=== PATIENT | male | born 1940 | race Caucasian/White ===

== ENCOUNTER 2018-10-28 12:34 | Observation (INO) | payer MEDICARE ==
[2018-10-28 13:03] LABS: ABS Eosinophils 0.2 10^3/ul (0-0.6); ABS Lymphocytes 0.8 10^3/ul (1.0-4.8); ABS Monocytes 0.4 10^3/ul (0-0.8); ABS Neutrophils 3.7 10^3/ul (1.5-7.7); Eosinophil % 3.1 %; Hematocrit 42 % (42-52); Hemoglobin 13.8 g/dL (14.0-18.0); Lymphocyte % 14.9 %; Mean Corpuscular HGB Conc 33 g/dL (31-36); Mean Corpuscular Hemoglobin 30 pg (27-31); Mean Corpuscular Volume 91 fL (80-94); Mean Platelet Volume 8.6 fL (7.4-10.4); Nucleated Red Blood Cells % 0.1; Platelet Count 183 10^3/uL (150-450); Red Blood Count 4.58 10^6 /uL (4.18-5.48); Red Cell Distribution Width 16 % (10-15)
[2018-10-28 13:11] LABS: INR 1.07 (0.82-1.09)
[2018-10-28 13:26] LABS: Albumin 3.7 g/dL (3.2-5.2); Albumin/Globulin Ratio 1.2 (1-3); BUN/Creatinine Ratio 26.9 (8-20); EGFR African American 71.9 (>60); EGFR Non-African American 59.4 (>60); Potassium 4.3 mmol/L (3.5-5.0); Total Bilirubin 0.7 mg/dL (0.2-1.0); Total Protein 6.7 g/dL (6.4-8.9)
[2018-10-28 13:29] LABS: Troponin I 0.02 ng/mL (<0.04)
[2018-10-28] MEDS ORDERED: NS 0.9% 1000 ML** 1,000 ML IV ONE (14:12)
--- NOTE | 2018-10-28 14:40 | ED ---
Syncope/Near Syncope - HPI Summary HPI Summary: This patient is a 78 year old M presenting to [facility] accompanied by his friend with a chief complaint of syncope since 1200 today. The patient rates the pain 0 /10 in severity. Symptoms aggravated by nothing. Symptoms alleviated by nothing. Patient was having breakfast with his friend when he said he was not feeling well. Per friend the patient became pale, slumped over, and started to snore. Next thing the patient remembers his friend is putting him into his car. He states that he believes he had a syncopal episode due to his hyponatremia, but has not had any previously. Patient reports lightheadedness, dizziness, being disoriented, and clamminess. Patient denies CP, SOB, pain or swelling in lower extremities, fever, chills, erythema of eyes, sore throat, cough, abdominal pain, N/V, dysuria, hematuria, swelling myalgia, and rash. He does not use drugs or consume alcohol, but reports a strong appetite. His field naturalist is Dr. Kelly in [place], [place]. He had 5 bypass surgeries done over the past several years and double pneumonia in July 2018. - History Of Current Complaint Chief Complaint: EDSyncope Time Seen by Provider: 10/28/18 12:51 Hx Obtained From: Patient, Other: - friend Onset/Duration: Sudden Onset, Lasting Hours - 2, Resolved Timing: Hours - 2 Context: Witnessed - friend was present Activity At Onset: Other - eating and talking Aggravating Factor(s): Nothing Alleviating Factor(s): Nothing Associated Signs And Symptoms: Diaphoresis - clamminess, Dizzy, Lightheadedness , Other - disoriented - Allergies/Home Medications Allergies/Adverse Reactions: Allergies Allergy/AdvReac Type Severity Reaction Status Date / Time No Known Allergies Allergy Verified 10/28/18 12:42 Home Medications: Home Medications Aspirin 1 tab PO DAILY 10/28/18 [History Confirmed 10/28/18] Atorvastatin* 80 mg PO DAILY 10/28/18 [History Confirmed 10/28/18] Carvedilol TAB* [Coreg TAB*] 1 tab PO BID 10/28/18 [History Confirmed 10/28/18] Fluticasone/Vilanterol MDI(NF) [Breo Ellipta MDI 100/25(NF)] 1 inh INH DAILY [History Confirmed 10/28/18] Losartan Potassium [Cozaar] 1 tab PO DAILY 10/28/18 [History Confirmed 10/28/18] Pantoprazole TAB * [Protonix TAB*] 1 tab PO DAILY 10/28/18 [History Confirmed ] PMH/Surg Hx/FS Hx/Imm Hx Previously Healthy: No Cardiovascular History: Reports: Hx Coronary Artery Disease Respiratory History: Reports: Hx Pneumonia - double pneumonia in July 2018 Sensory History: Denies: Hx Vision Problem, Hx Deafness Opthamlomology History: Denies: Hx Cataracts EENT History: Denies: Hx Deafness - Surgical History Surgical History: Yes Surgery Procedure, Year, and Place: 5 CABG procedures done in the past several years Infectious Disease History: No Infectious Disease History: Denies: Traveled Outside the [place] in Last 30 Days - Family History Known Family History: Positive: Cardiac Disease - several family members Negative: Diabetes - Social History Alcohol Use: None Hx Substance Use: No Substance Use Type: Reports: None Hx Tobacco Use: No Smoking Status (MU): Former Smoker Do You Chew or Dip Tobacco: No Have You Chewed or Dipped Tobacco in the LAST YEAR: No Have You Smoked in the Last Year: No Review of Systems Positive: Skin Diaphoresis - clamminess. Negative: Fever, Chills Negative: Erythema Negative: Sore Throat Negative: Chest Pain Negative: Shortness Of Breath, Cough Negative: Abdominal Pain, Vomiting, Nausea Negative: dysuria, hematuria Musculoskeletal: Other - negative - lower extremity pain and swelling Negative: Myalgia, Edema Negative: Rash Neurological: Other - lightheaded, dizziness, disoriented Positive: Syncope All Other Systems Reviewed And Are Negative: Yes Physical Exam - Summary Physical Exam Summary: Constitutional: Well-developed, Well-nourished, Alert. (-) Distressed Skin: Warm, Dry HENT: Normocephalic; Atraumatic Eyes: Conjunctiva normal Neck: Musculoskeletal ROM normal neck. (-) JVD, (-) Stridor, (-) Tracheal deviation Cardio: Rhythm regular, rate normal, Heart sounds normal; Intact distal pulses; The pedal pulses are 2+ and symmetric. Radial pulses are 2+ and symmetric. (-) Murmur Pulmonary/Chest wall: Effort normal. (-) Respiratory distress, (-) Wheezes, (-) Rales Abd: Soft, (-) tenderness, (-) Distension, (-) Guarding, (-) Rebound Musculoskeletal: (-) Edema Lymph: (-) Cervical adenopathy Neuro: Alert, Oriented x3 Psych: Mood and affect Normal Triage Information Reviewed: Yes Vital Signs On Initial Exam: Initial Vitals Temp Pulse Resp BP Pulse Ox 96.7 F 72 18 165/94 97 10/28/18 12:36 10/28/18 12:36 10/28/18 12:36 10/28/18 12:36 10/28/18 12:36 Vital Signs Reviewed: Yes Diagnostics - Vital Signs Vital Signs Temp Pulse Resp BP Pulse Ox 10/28/18 13:37 58 16 143/74 98 10/28/18 13:06 54 21 177/87 97 10/28/18 12:36 96.7 F 72 18 165/94 97 - Laboratory Lab Results: Lab Results 10/28/18 10/28/18 10/28/18 Range/Units 12:51 12:51 12:51 WBC 5.0 (3.5-10.8) 10^3/uL RBC 4.58 (4.18-5.48) 10^6 /uL Hgb 13.8 L (14.0-18.0) g/dL Hct 42 (42-52) % MCV 91 (80-94) fL MCH 30 (27-31) pg MCHC 33 (31-36) g/dL RDW 16 H (10-15) % Plt Count 183 (150-450) 10^3/uL MPV 8.6 (7.4-10.4) fL Neut % (Auto) 72.7 % Lymph % (Auto) 14.9 % [place] % (Auto) 8.9 % Eos % (Auto) 3.1 % Baso % (Auto) 0.4 % Absolute Neuts (auto) 3.7 (1.5-7.7) 10^3/ul Absolute Lymphs (auto) 0.8 L (1.0-4.8) 10^3/ul Absolute Monos (auto) 0.4 (0-0.8) 10^3/ul Absolute Eos (auto) 0.2 (0-0.6) 10^3/ul Absolute Basos (auto) 0.0 (0-0.2) 10^3/ul Absolute Nucleated RBC 0.0 10^3/ul Nucleated RBC % 0.1 INR (Anticoag Therapy) 1.07 (0.82-1.09) Sodium 140 (135-145) mmol/L Potassium 4.3 (3.5-5.0) mmol/L Chloride 108 (101-111) mmol/L Carbon Dioxide 27 (22-32) mmol/L Anion Gap 5 (2-11) mmol/L BUN 32 H (6-24) mg/dL Creatinine 1.19 H (0.67-1.17) mg/dL Est GFR ( Amer) 71.9 (>60) Est GFR (Non-Af Amer) 59.4 (>60) BUN/Creatinine Ratio 26.9 H (8-20) Glucose 159 H (70-100) mg/dL Calcium 9.0 (8.6-10.3) mg/dL Total Bilirubin 0.70 (0.2-1.0) mg/dL AST 20 (13-39) U/L ALT 20 (7-52) U/L Alkaline Phosphatase 68 (34-104) U/L Troponin I 0.02 (<0.04) ng/mL Total Protein 6.7 (6.4-8.9) g/dL Albumin 3.7 (3.2-5.2) g/dL Globulin 3.0 (2-4) g/dL Albumin/Globulin Ratio 1.2 (1-3) Result Diagrams: 10/28/18 12:51 10/28/18 12:51 Lab Statement: Any lab studies that have been ordered have been reviewed, and results considered in the medical decision making process. - Radiology CXR Radiology Interpretation Completed By: Radiologist Summary of Radiographic Findings: IMPRESSION: Stigmata of obstructive lung disease. No acute pulmonary or cardiac process evident. These findings were reviewed by Dr. Hartmann. - CT CTA Chest CT Interpretation Completed By: Radiologist Summary of CT Findings: 1. No pulmonary arterial filling defect to suggest pulmonary embolism. 2. Emphysema. 3. Atherosclerosis. These findings were reviewed by Dr. Hartmann. - EKG 1246 Cardiac Rate: Bradycardia - 53 BPM EKG Rhythm: Sinus Bradycardia EKG Comparison: No Significant Change - unchanged from EKG taken on September 13, 2018 Summary of EKG Findings: 53 BPM, sinus bradycardia, no STEMI, T wave inversion, ST depression V4-V6, unchanged from EKG taken on September 13, 2018 Re-Evaluation - Re-Evaluation First Eval Re-Evaluation Time: 16:00 Comment: I discussed results and admission with the patient. Course/Dx Course Of Treatment: This patient is a 78 year old M presenting to [facility] accompanied by his friend with a chief complaint of syncope since a couple of hours ago. The patient rates the pain 0/10 in severity. Symptoms aggravated by nothing. Symptoms alleviated by nothing. Patient was having breakfast with his friend when he said he was not feeling well. Per friend the patient became pale , slumped over, and started to snore. Next thing the patient remembers his friend is putting him into his car. He states that he believes he had a syncopal episode due to his hyponatremia, but has not had any previously. Patient reports lightheadedness, dizziness, being disoriented, and clamminess. Patient denies CP, SOB, pain or swelling in lower extremities, fever, chills, erythema of eyes, sore throat, cough, abdominal pain, N/V, dysuria, hematuria, myalgia, edema, and rash. He does not use drugs or consume alcohol, but reports a strong appetite. His field naturalist is Dr. Kelly in [place], [place]. He had 5 bypass surgeries done over the past several years and double pneumonia in July. Physical Exam findings are normal. CTA Chest Impression: 1. No pulmonary arterial filling defect to suggest pulmonary embolism. 2. Emphysema. 3. Atherosclerosis. CXR Impression: Stigmata of obstructive lung disease. No acute pulmonary or cardiac process evident. EKG at 1246: 53 BPM, sinus bradycardia, no STEMI, T wave inversion, ST depression V4-V6, unchanged from EKG taken on September 13, 2018. Previous EKG obtained from Dr. Sherwin Kelly in [place], [place], field naturalist. Lab results show Hgb 13.8, RDW 16, absolute lymphs (auto) 0.8, BUN 32, creatinine 1.19, BUN/creatinine ratio 26.9, glucose 159. During the ED Course, the patient was given Iodixanol and IV fluids. He is diagnosed with syncope. Patient was admitted to [facility] by Dr. Lynch. Patient is agreeable. - Diagnoses Provider Diagnoses: Syncope - Physician Notifications Discussed Care of Patient With: Karen Lynch - hospitalist Time Discussed With Above Provider: 16:10 Instructed by Provider To: Other - I discussed the patient's case with Dr. Lnych , hospitalist. She agrees to admit patient. Discharge - Sign-Out/Discharge Documenting (check all that apply): Patient Departure - admit Patient Received Moderate/Deep Sedation with Procedure: No - Discharge Plan Condition: Stable Disposition: ADMITTED TO [facility] - Billing Disposition and Condition Condition: STABLE Disposition: Admitted to [facility] - Attestation Statements Document Initiated by Scribe: Yes Documenting Scribe: Kendall Brar Provider For Whom Scribe is Documenting (Include Credential): Dr. Isaac Hartmann MD Scribe Attestation: IKendall, scribed for Dr. Isaac Hartmann MD on 10/28/18 at 2040. Status of Scribe Document: Ready
[2018-10-28] MEDS ORDERED: Iodixanol* (CONTRAST) 320 MG/ML 100 ML SDV IV ONE (15:04)
[2018-10-28] MEDS ORDERED: Al Hydrox/Mg Hydrox/Simet LIQ* 30 ML UDC PO PRN (16:28)
[2018-10-28] MEDS ORDERED: NS 0.9% 1000 ML** 1,000 ML IV SCH (16:30)
[2018-10-28] MEDS ORDERED: Atorvastatin* 80 MG TAB PO SCH (17:00)
--- NOTE | 2018-10-28 18:46 | HP ---
HISTORY AND PHYSICAL: DATE OF ADMISSION: 10/28/18 PRIMARY CARE PROVIDER: None locally. CHIEF COMPLAINT: Syncope. HISTORY OF PRESENT ILLNESS: Demar Cuevas is a 78-year-old male with history of coronary artery disease who is visiting here from [place]. The patient stated that he has been in [facility] for the past 3 to 4 days and he is staying with his friend. He has been traveling for the past 2 weeks and he lives in [place] alone. He said he has been driving around the [facility]. He stated that his appetite has been good, but he may have been dehydrated and not keeping up with his meals. Today in the morning, he woke up at 9:00 a.m. and he ate lunch around noon with his friend. He came in to the ED at around 12:36 after he was brought by his friend. After they had a sandwich at [facility], the patient stated that he felt poorly and very weak. Consequently, he appeared to be slumped on his chair and had snoring for a second or 2. When his friend woke him up, the patient woke up and stated "no, I am okay, I am okay." At that point, the patient's friend brought him to the car and to come to the emergency department. There was no evidence of incontinence. No evidence of chest pain or shortness of breath. The patient complained of nothing. He appeared he was not confused and he regained consciousness quickly upon awakening. The snoring episode lasted a few seconds as per his male friend. He is going to be observed with diagnosis of syncope. PAST MEDICAL HISTORY: 1. History of 5-vessel CABG in 2014. 2. History of bilateral pneumonia in July 2018. 3. 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 4. Hypertension. 5. Dyslipidemia. 6. History of right ankle ORIF. 7. COPD, not on oxygen. MEDICATIONS: 1. Losartan 50 mg daily. 2. Aspirin 325 mg daily. 3. Lipitor 80 mg daily. 4. Protonix 40 mg daily. 5. Coreg 6.25 mg b.i.d. 6. Breo Ellipta 100/25 one inhalation daily. ALLERGIES: No known drug allergies. FAMILY HISTORY: Reviewed and noncontributory. SOCIAL HISTORY: The patient stated that he smoked a lot of cigarettes, but he quit smoking 25 years ago. He denies any drug use apart from occasional marijuana. He drinks 10 to 12 beers in a year. He lives alone and his surrogate decision maker is his friend, Rafy Richmond, from [place], [place], phone number is [phone]. REVIEW OF SYSTEMS: Please see history of present illness. In addition to the above mentioned, the patient stated that not as good as he used to be after his bilateral pneumonia in July of this year. He still has some shortness of breath on exertion. All the remaining 12 systems were reviewed with the patient and were otherwise negative. PHYSICAL EXAMINATION GENERAL: The patient is a pleasant 78-year-old male, who is in no acute distress. Alert, awake, and oriented x3. VITAL SIGNS: Blood pressure 162/79, heart rate of 55 and regular, respiratory rate 18, oxygen saturation 99% on room air, temperature of 96.7. HEENT: Head: Atraumatic, normocephalic. Eyes: Pupils are equal, reactive to light and accommodation. Oropharynx clear. Mucosa moist. NECK: Supple. No JVD, no bruits bilaterally. RESPIRATORY: Distant breath sounds bilaterally. No wheezes. CARDIOVASCULAR: Regular rate and rhythm. No murmur. ABDOMEN: Soft, nontender. Bowel sounds present in all 4 quadrants. EXTREMITIES: There is no edema. Pulses are +2 bilaterally. There is no clubbing or cyanosis. NEUROLOGIC: On neuro evaluation, speech is clear. Cranial nerves II through XII grossly intact. Motor strength is 5/5 bilaterally. LABORATORY DATA/DIAGNOSTIC STUDIES: White blood cell count 5.0, hemoglobin 13.8 , hematocrit 42, and platelets of 183,000. Sodium 140, potassium 4.3, chloride 108, carbon dioxide 27, BUN 32, creatinine 1.19. Liver function tests unremarkable. Troponin of 0.[address] angiogram of the chest was obtained. Impression: "No pulmonary arterial filling defects to suggest pulmonary embolism. Emphysema. 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 ASSESSMENT AND PLAN: 1. Syncope. At this point, it could be a vagal episode after the patient had a large meal. Nevertheless, the patient is going to be observed on telemetry monitored bed. We will continue neuro checks every 4 hours also. The patient is in sinus bradycardia. He has a history of cardiac disease and cardiomyopathy with, at this point unknown EF. Obtain a transthoracic echocardiogram to evaluate it further. 2. In regards of his hypertension, his losartan and Coreg are going to be continued. 3. For the patient's chronic obstructive pulmonary disease, does not appear to be in exacerbation and Breo Ellipta is going to be continued. 4. For DVT prophylaxis, the patient is going to be placed on heparin subcutaneously. TIME SPENT: Approximately 62 minutes were spent on admission of this patient, more than half of that time was spent [id number] with the patient during the interview and physical exam. [id number]/[facility] #: [id number] LEX
[2018-10-28] MEDS: Carvedilol TAB* 6.25 MG PO SCH (21:52)
[2018-10-28] MEDS: Docusate CAP* 100 MG PO SCH (21:52)
[2018-10-28] MEDS: Heparin VIAL(*) 5000 UNITS/ML VIAL (FIVE THOUSAND) SUBCUT SCH (21:56)
[2018-10-28] MEDS ORDERED: Melatonin 3 MG TAB PO PRN (23:54)
[2018-10-29] MEDS ORDERED: diPHENhydraMINE PO* 25 MG PO ONE (01:10)
[2018-10-29] MEDS: Heparin VIAL(*) 5000 UNITS/ML VIAL (FIVE THOUSAND) SUBCUT SCH (06:22)
[2018-10-29 07:04] LABS: ABS Eosinophils 0.1 10^3/ul (0-0.6); ABS Lymphocytes 0.8 10^3/ul (1.0-4.8); ABS Monocytes 0.4 10^3/ul (0-0.8); ABS Neutrophils 3.4 10^3/ul (1.5-7.7); Eosinophil % 2.3 %; Hematocrit 36 % (42-52); Hemoglobin 12.4 g/dL (14.0-18.0); Lymphocyte % 16.2 %; Mean Corpuscular HGB Conc 34 g/dL (31-36); Mean Corpuscular Hemoglobin 31 pg (27-31); Mean Corpuscular Volume 89 fL (80-94); Mean Platelet Volume 8.6 fL (7.4-10.4); Platelet Count 158 10^3/uL (150-450); Red Blood Count 4.08 10^6 /uL (4.18-5.48); Red Cell Distribution Width 16 % (10-15); White Blood Count 4.7 10^3/uL (3.5-10.8)
[2018-10-29 07:27] LABS: BUN/Creatinine Ratio 31.7 (8-20); Calcium 8.3 mg/dL (8.6-10.3); EGFR African American 86.9 (>60); EGFR Non-African American 71.8 (>60); Potassium 3.7 mmol/L (3.5-5.0)
[2018-10-29] MEDS ORDERED: Pantoprazole TAB * 40 MG TAB PO SCH (09:00)
[2018-10-29] MEDS ORDERED: Aspirin TAB* 325 MG PO SCH (09:00)
[2018-10-29] MEDS ORDERED: NFT: Fluticasone/Vilanterol MDI(NF) 100/25 MDI INH SCH (09:00)
[2018-10-29] MEDS ORDERED: Losartan TAB* 25 MG PO SCH (09:00)
[2018-10-29] MEDS: Docusate CAP* 100 MG PO SCH (10:46)
[2018-10-29] MEDS: Carvedilol TAB* 6.25 MG PO SCH (10:46)
--- NOTE | 2018-10-29 12:24 | ECHO ---
*[facility]* [place] [address] Fax #: [phone] Transthoracic Echocardiogram Patient: Mason, Height: 71 in / Demar 180.3 cm : 1940 Weight: 149.7 lb / Study Date: 10/29/2018 68 kg Age: 78 BP: 156 / 88 Gender: M BMI/BSA: 20.9 kg/m^2 HR: 57 bpm / 1.87 m^2 *Bread Dough Mixer: * Allison Herr [facility] *Referring Physician: * Karen Lynch *Reading Physician: Skip Briggs MD History: COPD. Syncope. Coronary artery disease. Risk factors: Former tobacco use. Labs, prior tests, procedures, and surgery: Coronary artery bypass grafting. Conclusions Summary: 1. Left ventricle: The cavity size is normal. Wall thickness is normal. Systolic function is normal. The estimated ejection fraction is 55-60%. 2. Regional wall motion abnormality: Mild hypokinesis of the apical septal myocardium. 3. Right ventricle: The cavity size is normal. Systolic function is normal. 4. Ventricular septum: Ventricular septal wall motion has a postoperative appearance. 5. Left atrium: The atrium is mildly to moderately dilated. 6. Pulmonary arteries: Systolic pressure is mildly increased. 7. No significant valvular abnormalities noted. Recommendations: None prior for comparison at time of interpretation Study data: Transthoracic echocardiogram. Procedure: Transthoracic echocardiography was performed. Complete 2D, spectral Doppler, and color flow Doppler. Patient status: Inpatient. Patient room number: 445-1. Rhythm: Bradycardia. Findings Left ventricle: The cavity size is normal. Wall thickness is normal. Systolic function is normal. The estimated ejection fraction is 55-60%. Regional wall motion abnormalities: Mild hypokinesis of the apical septal myocardium. Features are consistent with a pseudonormal left ventricular filling pattern, with concomitant abnormal relaxation and increased filling pressure (grade 2 diastolic dysfunction). Right ventricle: Well visualized. The cavity size is normal. Systolic function is normal. Ventricular septum: Ventricular septal wall motion has a postoperative appearance. Left atrium: Well visualized. The atrium is mildly to moderately dilated. Right atrium: Well visualized. The atrium is normal in size. Atrial septum: Well visualized. Mitral valve: Well visualized. The leaflets are mildly thickened. No echocardiographic evidence for prolapse. There is no evidence of stenosis. There is mild regurgitation. Aortic valve: Well visualized. The valve is trileaflet. The leaflets are mildly thickened. There is no evidence of stenosis. There is mild regurgitation. Tricuspid valve: Well visualized. The leaflets are normal thickness. There is no evidence of stenosis. There is mild regurgitation. Pulmonic valve: Well visualized. The leaflets are normal thickness. There is no evidence of stenosis. There is trivial regurgitation. Aorta: The aorta is well visualized and normal size. Aortic arch: The aortic arch is appears normal. The aortic root is not dilated. Pericardium: There is no pericardial effusion. No evidence of pleural fluid accumulation. Pulmonary arteries: Not well visualized. Systolic pressure is mildly increased. Systemic veins: Well visualized. Inferior vena cava: The vessel is normal in size. Pulmonary veins: Visualization of the pulmonary venous anatomy is incomplete, but a significant abnormality is unlikely. Measurements Left ventricle Value Ref Aortic valve continued Value Ref AFTAB, LAX 4.3 cm 4.2 - Peak v, S 1.08 m/sec ----- 5.8 VTI, S 27.8 cm ----- ESD, LAX 2.9 cm 2.5 - Mean grad, S 3.0 mm Hg ----- 4.0 Peak grad, S 5.0 mm Hg ----- FS, LAX 32 % 25 - 43 LVOT/AV, VTI ratio 0.67 ----- PW, ED, LAX 0.8 cm 0.6 - AR peak v 2.44 m/sec ----- 1.0 AR PHT 635 ms ----- FS 32 % 25 - 43 AR peak grad 24 mm Hg ----- Mid-wall FS 16 % ------- PW, ED 0.8 cm 0.6 - Mitral valve Value Ref 1.0 Peak E 0.72 m/sec ----- PW/ID, ED 0.19 ------- Peak A 0.67 m/sec ----- E', lat simon, TDI (L) 6.2 cm/sec >=10.0 Decel time 158 ms ----- E/e', lat simon, TDI 12 ------- Peak grad, D 2.1 mm Hg --- -- E', med simon, TDI (L) 4.5 cm/sec >=7.0 Peak E/A ratio 1.1 ----- E/e', med simon, TDI 16 ------- E', avg, TDI 5.4 cm/sec ------- Pulmonic valve Value Ref E/e', avg, TDI 13 <=14 Peak v, S 0.67 m/sec ----- Peak grad, S 2.0 mm Hg ----- LVOT Value Ref Peak andree, S 0.87 m/sec ------- Tricuspid valve Value Ref VTI, S 18.5 cm ------- TR peak v (H) 3.09 m/sec <=2.8 Mean grad, S 1 mm Hg ------- Peak RV-RA grad, S 38 mm Hg ----- Max TR andree 3.09 m/sec ----- Ventricular septum Value Ref IVS, ED 0.8 cm 0.6 - Aortic root Value Ref 1.0 Root diam 3.3 cm <4.0 Root max diam, ED 3.3 cm <4.0 Right ventricle Value Ref AFTAB, LAX 3.2 cm ------- Ascending aorta Value Ref AAo AP diam, S 3.4 cm ----- Left atrium Value Ref AAo AP diam/bsa, S 1.8 cm/m^2 ----- ML dim, A4C 4.7 cm ------- SI dim, A4C 5.4 cm ------- Aortic arch Value Ref Vol/bsa, ES, 1-p (H) 47 ml/m^2 12 - 37 Arch diam 2.1 cm ----- A4C Vol/bsa, ES, A/L (H) 42 ml/m^2 16 - 34 Decending aorta Value Ref Palomo peak andree 0.39 m/sec ----- Right atrium Value Ref SI dim, ES 4.7 cm 3.4 - Inferior vena cava Value Ref 5.3 Diam 1.6 cm ----- ML dim, ES, A4C 4.0 cm 2.6 - 4.4 SI dim, ES, A4C 4.7 cm 3.4 - 5.3 SI dim/bsa, ES, A4C 2.5 cm/m^2 1.8 - 3.0 Estimated RAP 3 mm Hg ------- Aortic valve Value Ref Simon diam, ED 2.1 cm ------- Simon diam/bsa, ED 1.1 cm/m^2 ------- Legend: (L) and (H) mitchell values outside specified reference range. Prepared and electronically signed by Skip Sorenson MD 10/29/2018 12:24
[2018-10-29 12:31] VITALS: BP 164/83
--- NOTE | 2018-10-29 20:59 | DS ---
AMENDED REPORT NOW INCLUDES DESIGNATED COSIGNER DISCHARGE SUMMARY: DATE OF ADMISSION: 10/28/18 DATE OF DISCHARGE: 10/29/18 PRIMARY CARE PROVIDER: Dr. Crockett in [place]. ATTENDING PHYSICIAN: Dr. Manny Ramirez * (dictated by Brigitte Murray NP). PRIMARY DIAGNOSIS: 1. Syncope, suspect vasovagal response. SECONDARY DIAGNOSES: 1. Hypertension. 2. Chronic obstructive pulmonary disease. 3. Coronary artery disease. STUDIES WHILE IN THE HOSPITAL: 1. EKG on 10/28/18 shows sinus bradycardia with a rate of 53, QTc 463, inverted T waves in lateral leads. 2. Chest x-ray on 10/28/18 reads as stigmata of obstructive lung disease. No acute pulmonary or cardiac process evident. 3. Chest thorax CTA on 10/28/18 reads as no pulmonary arterial filling defect to suggest pulmonary embolism. Emphysema. Atherosclerosis. 4. Transthoracic echocardiogram on 10/29/18 reads as the left ventricular cavity size is normal. Wall thickness is normal. Systolic function is normal. The estimated ejection fraction is 55% to 60%. Mild hypokinesis of the apical septal myocardium. The right ventricular cavity size is normal. Systolic function is normal. Ventricular septal wall motion has a postoperative appearance. The left atrium is [id number] dilated. Systolic pressure in the pulmonary arteries is mildly increased. No significant valvular abnormalities noted. No prior imaging for comparison. HISTORY OF PRESENT ILLNESS AND HOSPITAL COURSE: Mr. Cuevas is a 78-year-old male with past medical history of coronary artery disease, status post CABG in 2015, hypertension, and COPD, who presented to the emergency room on 10/28/18 with complaints of syncope. Please see the history and physical by Dr. Lynch for complete summary of the events leading up to this hospitalization. In short , the [place]. He reports eating once around noon with his friend and then was brought into the emergency room around 12:30 by his friend. His friend noted that after they ate, he slumped in his chair and began snoring for couple seconds. He was easily awoken. He did report that he may have been dehydrated and not drinking as much as usual. In the emergency room, he was noted to have normal vital signs with some readings of hypertension. Lab work was essentially unremarkable, though because of the syncopal event he was admitted by the hospitalist service. The patient had an EKG as noted above with some T-wave abnormalities, though this is reportedly consistent with his baseline EKG which was obtained from the patient's forensic accountant in [place]. He did have 3 negative troponins. He did not have any chest pain and he did not have any arrhythmias on telemetry overnight. He was noted to have some episodes of bradycardia on telemetry, occasionally dropping as low as the high 40s while sleeping, though asymptomatic while awake. Vital signs have been normal. Orthostatic vital signs were negative. The patient had an echocardiogram with results noted above. At this point, there is no obvious cardiac cause for his syncope unless he had an acute episode of symptomatic bradycardia, though I think that is less likely. I suspect that this was a vasovagal response especially because it occurred after eating. At this point, the patient is ambulating at his baseline and offers no complaints. On exam, he has no focal neurological deficits. His heart has a regular rate and rhythm without murmurs, rubs, or gallops. His lungs are clear to auscultation without rhonchi, wheezes, or rubs. Physical exam is otherwise benign. Mr. Cuevas is stable for discharge today. Vital signs are follows: Temp 97.9 , heart rate 58, respiratory rate 20, oxygen saturation 99% on room air, blood pressure 164/83. DISCHARGE MEDICATIONS: Continued medications: 1. Aspirin 325 mg p.o. daily. 2. Atorvastatin 80 mg p.o. daily. 3. Carvedilol 6.25 mg p.o. b.i.d. 4. Breo Ellipta 100/25 one inhalation daily. 5. Losartan 50 mg p.o. daily. 6. Pantoprazole 40 mg p.o. daily. 7. Ambien 10 mg p.o. at bedtime p.r.n. insomnia. DISCHARGE PLAN: Mr. Cuevas will be discharged to home. Activity will be as tolerated. Diet will be heart-healthy. I have encouraged the patient to check his pulse multiple times a day to ensure he is not experiencing continued bradycardia. If he does note bradycardia or becomes symptomatic, I have instructed him that he will need to get in touch with his forensic accountant as his Coreg dosing may need to be adjusted. At this point, the patient can continue his usual medications and I have not made any changes. He will need to follow up with his primary care provider and his forensic accountant when he returns back home to [place]. The patient has been instructed to return to the emergency room or nearest hospital for any worsening of symptoms, shortness of breath, lightheadedness, dizziness, chest discomfort, high fevers, chills, night sweats, loss of consciousness, or any other worrisome signs or symptoms. DISCHARGE CONDITION: Stable. DISCHARGE DISPOSITION: Home. This is a summarized report of a complex medical history and hospital stay. For further details, please see the entire medical record. TIME SPENT: Approximately 45 minutes was spent on this discharge. BRIGITTE MURRAY NP [id number]/CPS #: [id number] LEX
== END 2018-10-29 14:08 | disposition home or self-care (01) ==
LOC: ED 12:34 → MEDTELE 16:28
PROVIDERS: ADMIT Internal Medicine; ATTEND Internal Medicine
DX: R55 Syncope and collapse (principal); I10 Essential (primary) hypertension; J44.9 Chronic obstructive pulmonary disease, unspecified; I25.10 Atherosclerotic heart disease of native coronary artery without angina pectoris; Z79.899 Other long term (current) drug therapy; Z79.82 Long term (current) use of aspirin; R00.1 Bradycardia, unspecified; E78.5 Hyperlipidemia, unspecified; Z95.5 Presence of coronary angioplasty implant and graft; Z87.81 Personal history of (healed) traumatic fracture; Z87.891 Personal history of nicotine dependence
CPT/HCPCS: 36415; 71045; 71275; 80048; 80053; 84484; 85025; 85610; 93005; 93306; 96360; 96361; 99284; A9270-GY; G0378; J1644; Q9967